=== PATIENT | female | born 1955 | race Caucasian/White ===

== ENCOUNTER 2020-03-28 00:17 | Observation (INO) ==
[2020-03-28] MEDS ORDERED: Albuterol/Ipratropium NEB.SOL (2.5/0.5 MG) 3 ML NEB.SOLN INH ONE (01:01)
[2020-03-28 01:04] LABS: ABS Eosinophils 0.1 10^3/ul (0-0.6); ABS Lymphocytes 1.9 10^3/ul (1.0-4.8); ABS Monocytes 0.5 10^3/ul (0-0.8); ABS Neutrophils 2.6 10^3/ul (1.5-7.7); Eosinophil % 1.9 %; Hematocrit 37 % (35-47); Hemoglobin 12.7 g/dL (12.0-16.0); Lymphocyte % 37.2 %; Mean Corpuscular HGB Conc 34 g/dL (31-36); Mean Corpuscular Hemoglobin 33 pg (27-31); Mean Corpuscular Volume 97 fL (80-97); Nucleated Red Blood Cells % 0.1; Platelet Count 258 10^3/uL (150-450); Red Blood Count 3.82 10^6 /uL (3.70-4.87); Red Cell Distribution Width 13 % (10-15); White Blood Count 5.1 10^3/uL (3.5-10.8)
[2020-03-28 01:11] LABS: INR 1.01 (0.82-1.09)
[2020-03-28 01:19] LABS: Albumin 4.1 g/dL (3.2-5.2); Albumin/Globulin Ratio 1.8 (1-3); BUN/Creatinine Ratio 11.8 (8-20); Calcium 8.7 mg/dL (8.6-10.3); EGFR Non-African American 120.7 (>60); Globulin 2.3 g/dL (2-4); Potassium 3.7 mmol/L (3.5-5.0); Total Bilirubin 0.4 mg/dL (0.2-1.0); Total Protein 6.4 g/dL (6.4-8.9)
[2020-03-28 01:22] LABS: Troponin I 0.01 ng/mL (<0.03)
[2020-03-28] MEDS ORDERED: Albuterol HFA INHALER 8 gm MDI INH PRN (04:24)
[2020-03-28 04:51] LABS: HDL Cholesterol 90.6 mg/dL
[2020-03-28] MEDS ORDERED: ROSUVASTATIN 5 MG PO SCH (09:00)
[2020-03-28] MEDS ORDERED: CMCS: Rosuvastatin 5 mg TAB (NF) PO SCH (09:00)
[2020-03-28] MEDS ORDERED: Aspirin EC 81 mg TAB.EC (enteric coated) PO ONE (10:39)
[2020-03-28 11:12] LABS: TSH Ultra Thyroid Stim Horm 2.85 mcIU/mL (0.34-5.60)
[2020-03-28 13:24] VITALS: BP 154/74
[2020-03-28] MEDS ORDERED: Pneumococcal Vac 23-Polyvalent IM ONE (13:30)
== END 2020-03-28 14:26 | disposition home or self-care (01) ==
LOC: ED 00:17 → MEDTELE 00:17 → ED 04:20
PROVIDERS: ADMIT Student in an Organized Health Care Education/Training Program; ATTEND Internal Medicine